=== PATIENT | male | born 1970 | race Caucasian/White ===

== ENCOUNTER 2019-11-25 16:49 | Inpatient (IN) | payer OTHER ==
--- NOTE | 2019-11-25 19:15 | HP ---
COWS - Scale Resting Pulse: 0= [place] 80 or Below Sweatin=Flushed/Facial Moisture Restless Observation: 0= Sits Still Pupil Size: 1= Pupils >than Normal Bone or Joint Aches: 4=Acute Joint/Muscle Pain Runny Nose/ Eye Tearin= Nasal Congestion GI Upset > 30mins: 3= Vomiting/Diarrhea (vomiting x 4, diarrhea x 5) Tremor Observation: 4= Gross Tremor/Twitching Yawning Observation: 0= None Anxiety or Irritability: 1=Feels Anxious/Irritable Goose Flesh Skin: 3=Piloerection COWS Score: 19 CIWA Score Nausea/Vomitin (vomitin g x 4) Muscle Tremors: 4-Moderate,w/Arms Extend Anxiety: 4-Mod. Anxious/Guarded Agitation: 4-Moderately Restless Paroxysmal Sweats: 2 Orientation: 0-Oriented Tacttile Disturbances: 0-None Auditory Disturbances: 0-None Visual Disturbances: 0-None Headache: 2-Mild CIWA-Ar Total Score: 19 - Admission Criteria OASAS Guidelines: Admission for Medically Managed Detox: Requires at least one of the followin. CIWA greater than 12 2. Seizures within the past 24 hours 3. Delirium tremens within the past 24 hours 4. Hallucinations within the past 24 hours 5. Acute intervention needed for co occurring medical disorder 6. Acute intervention needed for co occurring psychiatric disorder 7. Severe withdrawal that cannot be handled at a lower level of care (continued vomiting, continued diarrhea, abnormal vital signs) requiring intravenous medication and/or fluids 8. 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 Patient reports that the last time he was in detox was for the period 09/23/2012 - 09/30/2012 at [facility]. He was diagnosed with throat and stomach cancer in 2012 and was treated with radiation and chemotherapy. He recently relapsed in October 2019 and started drinking and using heroin again after about 7 years of sobriety. Patient reports that he drinks occasionally 3-4 times weekly. His last drink was 2 days ago. He has medical history of Hep. C, hypertension, seizures, abdominal and throat cancer. He reports psych. history of depression and denies suicidal ideation at this time. He states that his cancer diagnosis is in remission. Exam Limitations: Physical Impairment - Ebola screening Have you traveled outside of the country in the last 21 days: No (N) Have you had contact with anyone from an Ebola affected area: No Do you have a fever: No - Review of Systems Constitutional: Chills, Malaise, Night Sweats, Changes in sleep EENT: reports: No Symptoms Reported Respiratory: reports: No Symptoms reported Cardiac: reports: No Symptoms Reported GI: reports: Diarrhea, Nausea, Poor Appetite, Poor Fluid Intake, Vomiting, Abdominal cramping : reports: No Symptoms Reported Musculoskeletal: reports: Back Pain, Joint Pain Integumentary: reports: Dryness, Flushing Neuro: reports: Tremors Endocrine: reports: No Symptoms Reported Hematology: reports: No Symptoms Reported Psychiatric: reports: Mood/Affect Appropiate, Orientated x3 Other Systems: Reviewed and Negative Patient History - Patient Medical History Hx Anemia: No Hx Asthma: No Hx Chronic Obstructive Pulmonary Disease (COPD): No Hx Cancer: No Hx Cardiac Disorders: No Hx Congestive Heart Failure: No Hx Hypertension: Yes (Lisinopril) Hx Hypercholesterolemia: No Hx Pacemaker: No HX Cerebrovascular Accident: No Hx Seizures: Yes (Keppra) Hx Dementia: No Hx Diabetes: No Hx Gastrointestinal Disorders: No Hx Liver Disease: Yes (Hep. C ) Hx Genitourinary Disorders: No Hx Sexually Transmitted Disorders: No Hx Renal Disease (ESRD): No Hx Thyroid Disease: No Hx Human Immunodeficiency Virus (HIV): No Hx Hepatitis C: Yes (Not treated) Hx Depression: Yes Hx Suicide Attempt: No (Denies suicidal ideation at this time) Hx Bipolar Disorder: No Hx Schizophrenia: No - Patient Surgical History Past Surgical History: No Hx Neurologic Surgery: No Hx Cataract Extraction: No Hx Cardiac Surgery: No Hx Lung Surgery: No Hx Breast Surgery: No Hx Breast Biopsy: No Hx Abdominal Surgery: No Hx Appendectomy: No Hx Cholecystectomy: No Hx Genitourinary Surgery: No Hx Section: No Hx Orthopedic Surgery: No Anesthesia Reaction: No - PPD History Previous Implant?: Yes Documented Results: Negative w/proof Implanted On Prior [facility] Admission?: Yes Date: 09/20/12 Results: 0 PPD to be Administered?: Yes - Reproductive History Patient is a Female of Child Bearing Age (11 -55 yrs old): No (male) - Smoking Cessation Smoking history: Former smoker Have you smoked in the past 12 months: No Cigars Per Day: 0 Hx Chewing Tobacco Use: No Initiated information on smoking cessation: No - Substance & Tx. History Hx Substance Use: Yes Substance Use Type: Alcohol, Cocaine, Opiates Hx Substance Use Treatment: Yes ([facility]) - Substances abused Alcohol Substance route: Oral Frequency: Daily Amount used: 12 packs of beer/ 1 1/2 pint of vodka Age of first use: 16 Date of last use: 11/23/19 Heroin Substance route: Inhalation Frequency: Daily Amount used: 150 dollars Age of first use: 24 Date of last use: 11/25/19 Cocaine Substance route: Inhalation Frequency: 3-6 times per week Amount used: 100 dollars Age of first use: 16 Date of last use: 11/25/19 Marijuana/Hashish Substance route: Smoking Frequency: 3-6 times per week Amount used: 20 dollars Age of first use: 10 Date of last use: 11/22/19 Admission Physical Exam S - Vital Signs Vital Signs: Vital Signs - 24 hr 11/25/19 17:53 Temperature 98.8 F Pulse Rate 77 Respiratory 16 Rate Blood Pressure 155/98 - Physical General Appearance: Yes: Moderate Distress, Tremorous, Irritable, Sweating, Anxious HEENTM: Yes: Within Normal Limits Respiratory: Yes: Lungs Clear, Normal Breath Sounds, No Respiratory Distress Neck: Yes: Within Normal Limits Breast: Yes: Breast Exam Deferred Cardiology: Yes: Regular Rhythm, Regular Rate Abdominal: Yes: Normal Bowel Sounds, Soft Genitourinary: Yes: Within Normal Limits Back: Yes: Normal Inspection Musculoskeletal: Yes: Back pain Extremities: Yes: Tremors Neurological: Yes: Alert, Normal Mood/Affect Integumentary: Yes: Warm Lymphatic: Yes: Within Normal Limits - Diagnostic (1) Alcohol dependence with withdrawal, uncomplicated Current Visit: Yes Status: Acute (2) Hep C w/o coma, chronic Current Visit: Yes Status: Chronic (3) HTN (hypertension) Current Visit: Yes Status: Chronic Qualifiers: Hypertension type: unspecified Qualified Code(s): I10 - Essential (primary ) hypertension (4) Seizures Current Visit: Yes Status: Chronic (5) Depression Current Visit: Yes Status: Chronic Qualifiers: Major depression episode severity: unspecified (6) History of throat cancer Current Visit: No Status: Resolved (7) Cancer of abdominal organ Current Visit: No Status: Resolved Cleared for Admission S - Detox or Rehab [facility] Level of Care: Medically Managed Detox Regimen/Protocol: Ativan, Methadone Breathalyzer - Breathalyzer Breathalyzer: 0 Urine Drug Screen - Test Device Lot number: [id number] Expiration date: 06/03/21 - Control Is test valid?: Yes - Results Drug screen NEGATIVE: No Urine drug screen results: AHMET-Cocaine, MOP-Opiates Inpatient Rehab Admission - Rehab Decision to Admit Inpatient rehab admission?: No
[2019-11-25] MEDS ORDERED: hydrOXYzine PAMOATE 25 MG CAPSULE (FP) PO PRN (19:41)
[2019-11-25] MEDS ORDERED: ACETAMINOPHEN 325 MG TABLET (FP) PO PRN ×2 (19:41)
[2019-11-25] MEDS ORDERED: MENTHOL/PHENOL 1 EACH UD MM PRN (19:41)
[2019-11-25] MEDS ORDERED: IBUPROFEN 400 MG TABLET (FP) PO PRN (19:41)
[2019-11-25] MEDS ORDERED: MAGNESIUM HYDROX 2400MG/30ML ORAL SUSPENSION 30 ML CUP PO PRN (19:41)
[2019-11-25] MEDS ORDERED: MAGNESIUM CITRATE 300 ML BOTTLE PO PRN (19:41)
[2019-11-25] MEDS ORDERED: BISMUTH SUBSALICYLATE 524 MG/30 ML UD PO PRN (19:41)
[2019-11-25] MEDS ORDERED: METHADONE HCL 10 MG TABLET (FOR DETOX USE ONLY) PO ONE (19:41)
[2019-11-25] MEDS ORDERED: MAG HYDROX/AL HYDROX/SIMETH 30 ML UNIT-DOSE CUP PO PRN (19:41)
[2019-11-25] MEDS ORDERED: LORazepam 1 MG TABLET PO PRN (20:25)
[2019-11-25] MEDS: cloNIDine HCL 0.1 MG TABLET PO PRN (20:52)
[2019-11-25] MEDS: levETIRAcetam 500 MG TABLET (FP) PO SCH (22:33)
[2019-11-25] MEDS: THIAMINE HCL 100 MG TABLET (FP) PO SCH (22:33)
[2019-11-25] MEDS: LORazepam 2 MG TABLET PO SCH (22:34)
[2019-11-26] MEDS: LORazepam 2 MG TABLET PO SCH ×4 (06:38→22:28)
[2019-11-26] MEDS ORDERED: METHADONE HCL 5 MG TABLET (FOR DETOX USE ONLY) PO ONE (10:00)
[2019-11-26] MEDS: amLODIPine BESYLATE 10 MG TABLET (FP) PO SCH (10:17)
[2019-11-26] MEDS: levETIRAcetam 500 MG TABLET (FP) PO SCH ×2 (10:17→22:27)
[2019-11-26] MEDS: PRENATAL VITAMINS W/ FOLIC ACID TABLET (FP) PO SCH (10:17)
[2019-11-26 10:19] LABS: HEMATOCRIT 31.4 % (35.4-49); HEMOGLOBIN 10.2 GM/dL (11.7-16.9); MCH 27.3 pg (25.7-33.7); MCHC 32.7 g/dl (32.0-35.9); MEAN CELL VOLUME 83.6 fl (80-96); MEAN PLT VOLUME 7.8 fl (7.5-11.1); PLATELET COUNT 300 K/MM3 (134-434); RBC 3.75 M/mm3 (4.00-5.60); RDW 13.9 % (11.9-15.9); WHITE BLOOD COUNT 3.8 K/mm3 (4.0-10.0)
--- NOTE | 2019-11-26 10:27 | PN ---
[facility] CIWA - CIWA Score Nausea/Vomitin-Mild Nausea/No Vomiting Muscle Tremors: 4-Moderate,w/Arms Extend Anxiety: 4-Mod. Anxious/Guarded Agitation: 1-Slight > Activity Paroxysmal Sweats: 2 Orientation: 1-Uncertain about Date Tacttile Disturbances: 0-None Auditory Disturbances: 0-None Visual Disturbances: 0-None Headache: 1-Very Mild CIWA-Ar Total Score: 14 [facility] COWS - Scale Resting Pulse: 0= [place] 80 or Below Sweatin= Chills/Flushing Restless Observation: 0= Sits Still Pupil Size: 1= Pupils >than Normal Bone or Joint Aches: 1= Mild Discomfort Runny Nose/ Eye Tearin= Runny Nose/Eyes GI Upset > 30mins: 2= Nausea/Diarrhea Tremor Observation of Outstretched Hands: 2= Slight Tremor Visible Yawning Observation: 1= 1-2x During Session Anxiety or Irritability: 2=Irritable/Anxious Goose Flesh Skin: 3=Piloerection COWS Score: 15 [facility] Progress Note (SOAP) Subjective: 48 years old male admitted on 11/25/19 for alcohol and opiate withdrawal sx management treating with ativan and methadone detox regiments doing ok today ate breakfast resting in bed feeling tired limited conversation with staff Objective: 11/26/19 10:26 Vital Signs Temperature 98.1 F 11/26/19 09:14 Pulse Rate 74 11/26/19 09:14 Respiratory Rate 16 11/26/19 09:14 Blood Pressure 122/90 11/26/19 09:14 O2 Sat by Pulse Oximetry (%) Laboratory Last Values WBC 3.8 K/mm3 (4.0-10.0) L 11/26/19 08:00 RBC 3.75 M/mm3 (4.00-5.60) L 11/26/19 08:00 Hgb 10.2 GM/dL (11.7-16.9) L 11/26/19 08:00 Hct 31.4 % (35.4-49) L D 11/26/19 08:00 MCV 83.6 fl (80-96) 11/26/19 08:00 MCH 27.3 pg (25.7-33.7) 11/26/19 08:00 MCHC 32.7 g/dl (32.0-35.9) 11/26/19 08:00 RDW 13.9 % (11.9-15.9) 11/26/19 08:00 Plt Count 300 K/MM3 (134-434) D 11/26/19 08:00 MPV 7.8 fl (7.5-11.1) D 11/26/19 08:00 lab noted Assessment: 11/26/19 10:26 alcohol and opiate withdrawal seizure Plan: ativan and methadone regiments seizure precaution
[2019-11-26 10:29] LABS: ALBUMIN 2.7 g/dl (3.4-5.0); BILIRUBIN,TOTAL 0.7 mg/dL (0.2-1); BLOOD UREA NITROGEN 9.4 mg/dL (7-18); CALCIUM 8.9 mg/dL (8.5-10.1); CREATININE 0.9 mg/dL (0.55-1.3); POTASSIUM 4.3 mmol/L (3.5-5.1); TOT PROT 6.6 g/dl (6.4-8.2)
--- NOTE | 2019-11-26 15:15 | EKG ---
Test Reason : Blood Pressure : / mmHG Vent. Rate : 052 BPM Atrial Rate : 052 BPM P-R Int : 184 ms QRS Dur : 094 ms QT Int : 452 ms P-R-T Axes : 057 019 034 degrees QTc Int : 420 ms SINUS BRADYCARDIA POSSIBLE LEFT ATRIAL ENLARGEMENT LEFT VENTRICULAR HYPERTROPHY EARLY REPOLARIZATION ABNORMAL ECG NO PREVIOUS ECGS AVAILABLE Confirmed by LINCOLN SUTHERLAND MD ([id number]) on 11/26/2019 3:15:30 PM Referred By: Confirmed By:LINCOLN SUTHERLAND MD
--- NOTE | 2019-11-26 15:15 | EKG ---
Test Reason : Blood Pressure : / mmHG Vent. Rate : 065 BPM Atrial Rate : 065 BPM P-R Int : 148 ms QRS Dur : 102 ms QT Int : 416 ms P-R-T Axes : 050 052 045 degrees QTc Int : 432 ms NORMAL SINUS RHYTHM NORMAL ECG WHEN COMPARED WITH ECG OF 25-NOV-2019 18:31, NO SIGNIFICANT CHANGE WAS FOUND Confirmed by LINCOLN SUTHERLAND MD ([id number]) on 11/26/2019 3:14:54 PM Referred By: Confirmed By:LINCOLN SUTHERLAND MD
--- NOTE | 2019-11-26 15:36 | CONSULT ---
[facility] Psychiatric Consult - Data Date of interview: 11/26/19 Admission source: [facility] Identifying data: [facility] Supervisor approached patient for psychiatric consultation. Patient stated, " I feel sick today. Maybe tomorrow but not today." Psychiatric consultation refused. Please reorder psychiatric consultation if requested by patient.
[2019-11-26] MEDS ORDERED: TRIMETHOBENZAMIDE HCL 200MG/2ML INJ IM ONE (21:36)
--- NOTE | 2019-11-26 21:38 | PN ---
S Progress Note Note: Patient vomited x 1 Vital Signs Temperature 96.8 F L 11/26/19 21:32 Pulse Rate 68 11/26/19 21:32 Respiratory Rate 18 11/26/19 21:32 Blood Pressure 119/72 11/26/19 21:32 O2 Sat by Pulse Oximetry (%) Action: Tigan 200mg IM ordered
[2019-11-26] MEDS: METHOCARBAMOL 500 MG TABLET PO PRN (22:27)
[2019-11-26] MEDS: cloNIDine HCL 0.1 MG TABLET PO PRN (22:27)
[2019-11-26] MEDS: THIAMINE HCL 100 MG TABLET (FP) PO SCH (22:28)
[2019-11-26] MEDS: MELATONIN 5 MG TABLETS PO PRN (22:28)
[2019-11-27] MEDS: LORazepam 1 MG TABLET PO SCH ×4 (06:24→22:47)
[2019-11-27] MEDS ORDERED: METHADONE HCL 10 MG TABLET (FOR DETOX USE ONLY) PO ONE (10:00)
[2019-11-27] MEDS: PRENATAL VITAMINS W/ FOLIC ACID TABLET (FP) PO SCH (10:34)
[2019-11-27] MEDS: levETIRAcetam 500 MG TABLET (FP) PO SCH ×2 (10:34→22:50)
[2019-11-27] MEDS: amLODIPine BESYLATE 10 MG TABLET (FP) PO SCH (10:34)
[2019-11-27] MEDS ORDERED: ONDANSETRON *ODT* 4 MG TABLET SL PRN (10:39)
--- NOTE | 2019-11-27 12:42 | PN ---
S CIWA - CIWA Score Nausea/Vomitin Muscle Tremors: None Anxiety: 2 Agitation: 1-Slight > Activity Paroxysmal Sweats: 2 Orientation: 0-Oriented Tacttile Disturbances: 2-Mild Itch/Numbness/Burn Auditory Disturbances: 0-None Visual Disturbances: 1-Very Mild Sensitivity Headache: 1-Very Mild CIWA-Ar Total Score: 12 [facility] COWS - Scale Resting Pulse: 0= [place] 80 or Below Sweatin= Chills/Flushing Restless Observation: 1= Difficult to Sit Still Pupil Size: 0= Normal to Room Light Bone or Joint Aches: 1= Mild Discomfort Runny Nose/ Eye Tearin= Runny Nose/Eyes GI Upset > 30mins: 2= Nausea/Diarrhea Tremor Observation of Outstretched Hands: 1= Tremor [place], Not Seen Yawning Observation: 0= None Anxiety or Irritability: 2=Irritable/Anxious Goose Flesh Skin: 0=Smooth Skin COWS Score: 10 S Progress Note (SOAP) Subjective: 48 years old male with hx of alcohol and opiate dependence on ativan and methadone detox protocol c/o of nausea, chills and sweats. Objective: 11/27/19 12:42 Vital Signs Temperature 99.2 F 11/27/19 09:16 Pulse Rate 68 11/27/19 09:16 Respiratory Rate 18 11/27/19 09:16 Blood Pressure 135/97 11/27/19 09:16 O2 Sat by Pulse Oximetry (%) Laboratory Last Values WBC 3.8 K/mm3 (4.0-10.0) L 11/26/19 08:00 RBC 3.75 M/mm3 (4.00-5.60) L 11/26/19 08:00 Hgb 10.2 GM/dL (11.7-16.9) L 11/26/19 08:00 Hct 31.4 % (35.4-49) L D 11/26/19 08:00 MCV 83.6 fl (80-96) 11/26/19 08:00 MCH 27.3 pg (25.7-33.7) 11/26/19 08:00 MCHC 32.7 g/dl (32.0-35.9) 11/26/19 08:00 RDW 13.9 % (11.9-15.9) 11/26/19 08:00 Plt Count 300 K/MM3 (134-434) D 11/26/19 08:00 MPV 7.8 fl (7.5-11.1) D 11/26/19 08:00 Sodium 139 mmol/L (136-145) 11/26/19 08:00 Potassium 4.3 mmol/L (3.5-5.1) 11/26/19 08:00 Chloride 105 mmol/L (98-107) 11/26/19 08:00 Carbon Dioxide 30 mmol/L (21-32) 11/26/19 08:00 Anion Gap 4 MMOL/L (8-16) L 11/26/19 08:00 BUN 9.4 mg/dL (7-18) 11/26/19 08:00 Creatinine 0.9 mg/dL (0.55-1.3) 11/26/19 08:00 Est GFR (CKD-EPI)AfAm 115.02 11/26/19 08:00 Est GFR (CKD-EPI)NonAf 99.24 11/26/19 08:00 Random Glucose 74 mg/dL (74-106) 11/26/19 08:00 Calcium 8.9 mg/dL (8.5-10.1) 11/26/19 08:00 Total Bilirubin 0.7 mg/dL (0.2-1) 11/26/19 08:00 AST 15 U/L (15-37) 11/26/19 08:00 ALT 13 U/L (13-61) 11/26/19 08:00 Alkaline Phosphatase 61 U/L (45-117) 11/26/19 08:00 Total Protein 6.6 g/dl (6.4-8.2) 11/26/19 08:00 Albumin 2.7 g/dl (3.4-5.0) L 11/26/19 08:00 RPR Titer Nonreactive (NONREACTIVE) 11/26/19 08:00 Assessment: Patient is Aox3 no acute distress EENT WNL full ROM ambulating in the unit withdrawal sx hypoalbunemia mild anemia Plan: repeat CBC ensure one a day PO re: hypoalbunemia increase fluids continue detox continue to monitor
--- NOTE | 2019-11-27 17:42 | PN ---
[facility] Progress Note Note: per nursing -pt requesting to see psychiatrist, previously declined consult when psychiatrist went to see him .
[2019-11-27] MEDS ORDERED: hydrOXYzine PAMOATE 50 MG CAPSULE (FP) PO PRN (18:05)
--- NOTE | 2019-11-27 18:05 | PN ---
[facility] Progress Note Note: pt c/o anxiety and difficulty sleeping QTc 432 ms 11/25/2019 vistaril added to supportive medication protocol.
[2019-11-27] MEDS: THIAMINE HCL 100 MG TABLET (FP) PO SCH (22:49)
[2019-11-27] MEDS: MELATONIN 5 MG TABLETS PO PRN (22:50)
[2019-11-27] MEDS: METHOCARBAMOL 500 MG TABLET PO PRN (22:50)
[2019-11-28] MEDS ORDERED: LORazepam 0.5 MG TABLET PO PRN
[2019-11-28] MEDS: LORazepam 0.5 MG TABLET PO SCH ×4 (05:51→22:03)
[2019-11-28] MEDS ORDERED: METHADONE HCL 5 MG TABLET (FOR DETOX USE ONLY) PO ONE (06:00)
[2019-11-28] MEDS: PRENATAL VITAMINS W/ FOLIC ACID TABLET (FP) PO SCH (10:37)
[2019-11-28] MEDS: levETIRAcetam 500 MG TABLET (FP) PO SCH ×2 (10:38→22:04)
[2019-11-28] MEDS: amLODIPine BESYLATE 10 MG TABLET (FP) PO SCH (10:38)
--- NOTE | 2019-11-28 10:53 | PN ---
[facility] CIWA - CIWA Score Nausea/Vomitin-No Nausea/No Vomiting Muscle Tremors: None Anxiety: 2 Agitation: 0-Normal Activity Paroxysmal Sweats: 2 Orientation: 0-Oriented Tacttile Disturbances: 0-None Auditory Disturbances: 0-None Visual Disturbances: 0-None Headache: 0-None Present CIWA-Ar Total Score: 4 S COWS - Scale Resting Pulse: 0= [place] 80 or Below Sweatin= No chills or Flushing Restless Observation: 0= Sits Still Pupil Size: 0= Normal to Room Light Bone or Joint Aches: 1= Mild Discomfort Runny Nose/ Eye Tearin= None GI Upset > 30mins: 0= None Tremor Observation of Outstretched Hands: 0= None Yawning Observation: 0= None Anxiety or Irritability: 2=Irritable/Anxious Goose Flesh Skin: 0=Smooth Skin COWS Score: 3 [facility] Progress Note (SOAP) Subjective: c/o mild withdrawal symptoms. Objective: Vital Signs 11/28/19 11/28/19 11/28/19 03:30 06:20 09:08 Temperature 97.5 F L 97.0 F L Pulse Rate 58 L 64 Respiratory 18 18 16 Rate Blood Pressure 117/70 126/81 Laboratory Last Values WBC 3.8 K/mm3 (4.0-10.0) L 11/26/19 08:00 RBC 3.75 M/mm3 (4.00-5.60) L 11/26/19 08:00 Hgb 10.2 GM/dL (11.7-16.9) L 11/26/19 08:00 Hct 31.4 % (35.4-49) L D 11/26/19 08:00 MCV 83.6 fl (80-96) 11/26/19 08:00 MCH 27.3 pg (25.7-33.7) 11/26/19 08:00 MCHC 32.7 g/dl (32.0-35.9) 11/26/19 08:00 RDW 13.9 % (11.9-15.9) 11/26/19 08:00 Plt Count 300 K/MM3 (134-434) D 11/26/19 08:00 MPV 7.8 fl (7.5-11.1) D 11/26/19 08:00 Sodium 139 mmol/L (136-145) 11/26/19 08:00 Potassium 4.3 mmol/L (3.5-5.1) 11/26/19 08:00 Chloride 105 mmol/L (98-107) 11/26/19 08:00 Carbon Dioxide 30 mmol/L (21-32) 11/26/19 08:00 Anion Gap 4 MMOL/L (8-16) L 11/26/19 08:00 BUN 9.4 mg/dL (7-18) 11/26/19 08:00 Creatinine 0.9 mg/dL (0.55-1.3) 11/26/19 08:00 Est GFR (CKD-EPI)AfAm 115.02 11/26/19 08:00 Est GFR (CKD-EPI)NonAf 99.24 11/26/19 08:00 Random Glucose 74 mg/dL (74-106) 11/26/19 08:00 Calcium 8.9 mg/dL (8.5-10.1) 11/26/19 08:00 Total Bilirubin 0.7 mg/dL (0.2-1) 11/26/19 08:00 AST 15 U/L (15-37) 11/26/19 08:00 ALT 13 U/L (13-61) 11/26/19 08:00 Alkaline Phosphatase 61 U/L (45-117) 11/26/19 08:00 Total Protein 6.6 g/dl (6.4-8.2) 11/26/19 08:00 Albumin 2.7 g/dl (3.4-5.0) L 11/26/19 08:00 RPR Titer Nonreactive (NONREACTIVE) 11/26/19 08:00 Labs noted. Assessment: 11/28/19 10:52 AOX3, in no acute respiratory distress. Full ROM, ambulating in the unit. Mild Withdrawal symptoms. For d/c tomorrow. 11/28/19 10:52 Plan: continue detox. D/C in AM.
--- NOTE | 2019-11-28 11:55 | CONSULT ---
[facility] Psychiatric Consult - Data Date of interview: 11/28/19 Admission source: [facility] Identifying data: Revisit to [facility] and admission to [address] [place] [address] for this 48 y/o male self-referred for detoxification treatment. EDER issues : alcohol, heroin. Patient is , father of eleven (self-report), homeless, unemployed and supported on SSI benefits. Substance Abuse History: Discussed with patient in this interview. Details in current [facility] report as follows : Smoking history: Former smoker. Have you smoked in the past 12 months: No. Cigars Per Day: 0. Hx Chewing Tobacco Use: No. Initiated information on smoking cessation: No. - Substance & Tx. History. Hx Substance Use: Yes. Substance Use Type: Alcohol, Cocaine, Opiates. Hx Substance Use Treatment: Yes ([facility]). - Substances abused. Alcohol. Substance route: Oral. Frequency: Daily. Amount used: 12 packs of beer/ 1 1/2 pint of vodka. Age of first use: 16. Date of last use: 11/23/19. Heroin. Substance route: Inhalation. Frequency: Daily. Amount used: 150 dollars. Age of first use: 24. Date of last use: 11/25/19. Cocaine. Substance route: Inhalation. Frequency: 3-6 times per week. Amount used: 100 dollars. Age of first use: 16. Date of last use: 11/25/19. Marijuana/ Hashish. Substance route: Smoking. Frequency: 3-6 times per week. Amount used : 20 dollars. Age of first use: 10. Date of last use: 11/22/19 Medical History: Medical profile is remarkable for cancer of stomach + throat ( diagnosed in 2012 and addressed with radiation + chemotherapy), cachexia, seizure disorder (on levetiracetam), hepatitis C and hypertension. Psychiatric History: Patient endorses history of multiple psychiatric hospitalizations ([place] + [facility]). Reportedly diagnosed with Schizoaffective Disorder and PTSD. Mr Mahmood is currently under the care of Dr Trejo, a psychiatrist at the [facility] OPD clinic. Patient indicates treatment with sertraline, bupropion and paroxetine. Doses not recalled (patient is unable to produce any documentation which would facilitate verification). Compliance remains questionable. Patient reports history of two suicide attempts (declines to provide details). Physical/Sexual Abuse/Trauma History: Heavy stressors : serious medical illnesses, homelessness, lack of a support network and addictions. Additional Comment: Urine drug screen results: AHMET-Cocaine, MOP-Opiates. Noted. Mental Status Exam - Mental Status Exam Alert and Oriented to: Time, Place, Person Cognitive Function: Good Patient Appearance: Unkempt, Disheveled (cachectic frame) Mood: Hostile, Withdrawn, Irritable Affect: Mood Congruent, Constricted Patient Behavior: Fatigued, Cooperative (marginally cooperative) Speech Pattern: Clear Voice Loudness: Normal Thought Process: Goal Oriented Thought Disorder: Not Present Hallucinations: Denies Suicidal Ideation: Denies Homicidal Ideation: Denies Insight/Judgement: Poor Sleep: Fair Appetite: Poor, Weight loss Gait/Station: Normal Psychiatric Findings - Problem List ([place] 1, 2,3) (1) Alcohol dependence with withdrawal, uncomplicated Current Visit: Yes Status: Acute (2) Cocaine dependence Current Visit: Yes Status: Chronic (3) Opioid dependence Current Visit: Yes Status: Chronic (4) Substance induced mood disorder Current Visit: Yes Status: Chronic (5) History of schizoaffective disorder Current Visit: Yes Status: Chronic Comment: Reported by patient. Pattern of compliance to OPD care : unknown. (6) History of posttraumatic stress disorder (PTSD) Current Visit: Yes Status: Acute Comment: As per self-report. (7) Insomnia Current Visit: Yes Status: Chronic - Initial Treatment Plan Initial Treatment Plan: Psychoeducation. Support provided. Sleep hygiene. Disposition plan is reviewed with the patient. Meeting with counselor Ander Benavidez with patient in attendance : arrangements are in process to facilitate patient's transition to the rehabilitation unit after completion of detoxification (scheduled for 11/29/19). Medications discussed. Mr Mahmood is informed that bupropion is not appropriate due to his seizure disorder. Alternate drugs (atypicals, SSRIs, mood stabilizers) offered. Patient refuses. He is made aware of the potential of medication-induced oliver from utilization of antidepressant formulations (alone) in his condition. AA/NA meetings. Observation.
--- NOTE | 2019-11-28 16:29 | PN ---
[facility] Progress Note Note: Psychiatry Attending's note (addendum) : Met with the patient for the second time. Conference with counselor Ander Benavidez. Mr Mahmood is present. Treatment plan re-discussed. Medications revisited. Patient opted for sertraline (zoloft) and quetiapine (seroquel). Because of past history of good response to these two medications. Plan : Side effects/benefits discussed. Seroquel 50 mg po bid (first dose NOW). Zoloft 50 mg po daily. Informed consent (verbal) : obtained from patient. Psychiatry-Liaison will follow.
[2019-11-28] MEDS: QUEtiapine FUMARATE 50 MG TABLET PO SCH ×2 (17:02→22:04)
[2019-11-28] MEDS: MELATONIN 5 MG TABLETS PO PRN (22:04)
[2019-11-28] MEDS: METHOCARBAMOL 500 MG TABLET PO PRN (22:04)
[2019-11-28] MEDS: THIAMINE HCL 100 MG TABLET (FP) PO SCH (22:04)
[2019-11-29] MEDS ORDERED: LORazepam 0.5 MG TABLET PO ONE (05:00)
[2019-11-29] MEDS ORDERED: SERTRALINE HCL 50 MG TABLET (FP) PO SCH (10:00)
--- NOTE | 2019-11-29 10:06 | DS ---
[facility] Detox Discharge Summary Admission Date: 11/25/19 Discharge Date: 11/29/19 - History Present History: Alcohol Dependence, Opioid Dependence Additional Comments: 48 years old male admitted on 11/25/19 for alcohol and opiate withdrawal sx management treated with ativan and methadone detox regimen patient has completed the ativan and methadone regiments and tolerated well alert oriented x 3 seen by psychiatrist hole wellbutrim and antidepressant to avoid seizure and oliver episode Cardiac S1S2 regular rate rhythm respiratory clear lungs bilaterally on auscultation extremities full range of motion - Physical Exam Results Vital Signs: Vital Signs Temperature 97.9 F 11/29/19 09:23 Pulse Rate 75 11/29/19 09:23 Respiratory Rate 18 11/29/19 09:23 Blood Pressure 134/94 11/29/19 09:23 O2 Sat by Pulse Oximetry (%) Pertinent Admission Physical Exam Findings: alcohol and opiate withdrawal Laboratory Last Values WBC 3.8 K/mm3 (4.0-10.0) L 11/26/19 08:00 RBC 3.75 M/mm3 (4.00-5.60) L 11/26/19 08:00 Hgb 10.2 GM/dL (11.7-16.9) L 11/26/19 08:00 Hct 31.4 % (35.4-49) L D 11/26/19 08:00 MCV 83.6 fl (80-96) 11/26/19 08:00 MCH 27.3 pg (25.7-33.7) 11/26/19 08:00 MCHC 32.7 g/dl (32.0-35.9) 11/26/19 08:00 RDW 13.9 % (11.9-15.9) 11/26/19 08:00 Plt Count 300 K/MM3 (134-434) D 11/26/19 08:00 MPV 7.8 fl (7.5-11.1) D 11/26/19 08:00 Sodium 139 mmol/L (136-145) 11/26/19 08:00 Potassium 4.3 mmol/L (3.5-5.1) 11/26/19 08:00 Chloride 105 mmol/L (98-107) 11/26/19 08:00 Carbon Dioxide 30 mmol/L (21-32) 11/26/19 08:00 Anion Gap 4 MMOL/L (8-16) L 11/26/19 08:00 BUN 9.4 mg/dL (7-18) 11/26/19 08:00 Creatinine 0.9 mg/dL (0.55-1.3) 11/26/19 08:00 Est GFR (CKD-EPI)AfAm 115.02 11/26/19 08:00 Est GFR (CKD-EPI)NonAf 99.24 11/26/19 08:00 Random Glucose 74 mg/dL (74-106) 11/26/19 08:00 Calcium 8.9 mg/dL (8.5-10.1) 11/26/19 08:00 Total Bilirubin 0.7 mg/dL (0.2-1) 11/26/19 08:00 AST 15 U/L (15-37) 11/26/19 08:00 ALT 13 U/L (13-61) 11/26/19 08:00 Alkaline Phosphatase 61 U/L (45-117) 11/26/19 08:00 Total Protein 6.6 g/dl (6.4-8.2) 11/26/19 08:00 Albumin 2.7 g/dl (3.4-5.0) L 11/26/19 08:00 RPR Titer Nonreactive (NONREACTIVE) 11/26/19 08:00 lab noted - Treatment Hospital Course: Detox Protocol Followed, Detoxed Safely, Responded well, Discharged Condition Good, Rehab Referral Accepted Patient [facility] Accept[facility] - Medication Discharge Medications: Ambulatory Orders Amlodipine Besylate [Norvasc -] 10 mg PO DAILY 09/23/12 Bupropion HCl [Wellbutrin -] 150 mg PO BID 11/25/19 levETIRAcetam [Keppra -] 500 mg PO BID 11/25/19 - Diagnosis (1) Essential hypertension Current Visit: Yes Status: Chronic (2) Alcohol dependence with withdrawal, uncomplicated Current Visit: Yes Status: Acute (3) Hep C w/o coma, chronic Current Visit: Yes Status: Chronic (4) HTN (hypertension) Current Visit: Yes Status: Chronic Qualifiers: Hypertension type: essential hypertension Qualified Code(s): I10 - Essential (primary) hypertension (5) Substance induced mood disorder Current Visit: Yes Status: Suspected - AMA Did Patient Leave Against Medical Advice: No CIWA Score - CIWA Score Nausea/Vomitin-No Nausea/No Vomiting Muscle Tremors: None Anxiety: 1-Mildly Anxious Agitation: 0-Normal Activity Paroxysmal Sweats: No Perspiration Orientation: 0-Oriented Tacttile Disturbances: 0-None Auditory Disturbances: 0-None Visual Disturbances: 0-None Headache: 0-None Present CIWA-Ar Total Score: 1 COWS (PN) - Opiate Withdrawal Resting Pulse: 0= ND 80 or Below Sweatin= No chills or Flushing Restless Observation: 0= Sits Still Pupil Size: 0= Normal to Room Light Bone or Joint Aches: 0= None Runny Nose/ Eye Tearin= None GI Upset > 30mins: 0= None Tremor Observation of Outstretched Hands: 2= Slight Tremor Visible Yawning Observation: 0= None Anxiety or Irritability: 0= None Goose Flesh Skin: 0=Smooth Skin COWS Score: 2
[2019-11-29] MEDS: PRENATAL VITAMINS W/ FOLIC ACID TABLET (FP) PO SCH (10:29)
[2019-11-29] MEDS: levETIRAcetam 500 MG TABLET (FP) PO SCH (10:29)
[2019-11-29] MEDS: amLODIPine BESYLATE 10 MG TABLET (FP) PO SCH (10:29)
[2019-11-29] MEDS: QUEtiapine FUMARATE 50 MG TABLET PO SCH (10:29)
[2019-11-29 13:21] VITALS: BP 127/80; PULSE 85; TEMP 96.8
== END 2019-11-29 14:30 | disposition home or self-care (01) | DRG 773 ==
LOC: YASAS 16:49 → Y3N 20:18
PROVIDERS: ADMIT Allergy & Immunology; ATTEND Allergy & Immunology
PROC: HZ2ZZZZ Detoxification Services for Substance Abuse Treatment (ICD-10-PCS; principal; 2019-11-25)
DX: F11.23 Opioid dependence with withdrawal (principal); F10.230 Alcohol dependence with withdrawal, uncomplicated; F14.20 Cocaine dependence, uncomplicated; F17.210 Nicotine dependence, cigarettes, uncomplicated; F19.24 Other psychoactive substance dependence with psychoactive substance-induced mood disorder; I10 Essential (primary) hypertension; B18.2 Chronic viral hepatitis C; G47.00 Insomnia, unspecified; G40.909 Epilepsy, unspecified, not intractable, without status epilepticus; D64.9 Anemia, unspecified; R77.0 Abnormality of albumin; Z85.028 Personal history of other malignant neoplasm of stomach; Z85.819 Personal history of malignant neoplasm of unspecified site of lip, oral cavity, and pharynx; Z92.3 Personal history of irradiation; Z92.21 Personal history of antineoplastic chemotherapy; Z91.013 Allergy to seafood
CPT/HCPCS: 36415; 80053; 80177; 85027; 86593; 93005; 93010; J0735